=== PATIENT | female | born 1960 | race Caucasian/White ===

== ENCOUNTER 2022-01-24 16:40 | Emergency (ER) | payer OTHER, SELFPAY ==
[2022-01-24 17:04] VITALS: BP 118/79; PULSE 73; RESP 16; TEMP 36.7; O2SAT 99; BMI 31.8
--- NOTE | 2022-01-24 17:15 | ECG_ITS ---
[facility] Test Date: 2022-01-24 Pat Name: Annalise Patten Department: Room: Gender: Female Lease Broker: : 1960 Requested By: Edi Tatum Order Number: [id number] Reading MD: Claude Guo M.D. Measurements Intervals [place] Rate: 75 P: 23 AR: 153 QRS: -28 QRSD: 93 T: 39 QT: 354 QTc: 396 Interpretive Statements SINUS RHYTHM BORDERLINE LEFT AXIS DEVIATION [QRS AXIS < -20] INTERPRETATION BASED ON A DEFAULT AGE OF 40 YEARS No previous ECG available for comparison Electronically Signed On 01-25-2022 10:33:36 CDT by Claude Guo M.D. [id number] f
[2022-01-24 17:35] LABS: Basophils # 0.1 10^3/uL (0.0-0.1); Basophils % 0.3 %; Hematocrit 46.6 % (37.0-47.0); Hemoglobin 15.4 g/dL (11.5-15.3); Lymphocytes # 1.2 10^3/uL (0.8-4.8); Lymphocytes % 6.1 %; Mean Corpuscular Hemoglobin 29.8 pg (28.0-34.0); Mean Corpuscular Volume 90.3 fl (81-99); Mean Platelet Volume 9.3 fL (7.4-10.4); Monocytes # 0.6 10^3/uL (0.2-0.9); Monocytes % 2.8 %; Neutrophils # 18.22 10^3/uL (1.8-7.7); Neutrophils % 90.5 %; Nucleated Red Blood Cells % 0 %; Platelet Count 350 10^3/cmm (130-400); Red Blood Count 5.16 10^6/uL (4.1-5.3); Red Cell Distribution Width 13.8 % (12.1-15.1); White Blood Count 20.2 10^3/uL (4.0-10.0)
[2022-01-24 18:02] LABS: Troponin(5th) Baseline 13 ng/L (0-10)
[2022-01-24 18:07] LABS: Alanine Aminotransferase 15 U/L (0-33); Albumin Level 4.6 g/dL (3.5-5.2); Alkaline Phosphatase 52 IU/L (35-105); Anion Gap 17.3 (5-19); Aspartate Amino Transferase 18 U/L (0-32); Blood Urea Nitrogen 20 mg/dL (6-20); Calcium 9.9 mg/dL (8.5-10.5); Carbon Dioxide 26 mmol/L (22-29); Chloride 102 mmol/L (98-107); Creatinine Clr Calc Pharmacy 65.4819; Globulin 2.5 g/dL (1.3-4.6); Glomerular Filtration Rate 64.1 mL/min (90-130); Glucose 117 mg/dL (65-115); Osmolality Calculated 294 mOsm/kg (285-295); Potassium 5.3 mmol/L (3.5-5.1); Sodium 140 mmol/L (136-145); Total Bilirubin 0.3 mg/dL (0.15-1.2); Total Protein 7.1 g/dL (6.6-8.7)
[2022-01-24 18:11] VITALS: BP 113/69; PULSE 79; RESP 16; O2SAT 97
[2022-01-24 18:36] VITALS: BP 116/75; PULSE 71; RESP 18; O2SAT 99
--- NOTE | 2022-01-24 18:56 | CTR_ITS ---
PROCEDURE INFORMATION: Exam: CT Cervical Spine Without Contrast Exam date and time: 01/24/2022 7:13 PM Age: 61 years old Clinical indication: Injury or trauma; Fall; Blunt trauma; Patient HX: C/O neck pain after syncopal episode; Additional info: Syncope fall neck pain TECHNIQUE: Imaging protocol: Computed tomography of the cervical spine without contrast. Radiation optimization: All CT scans at this facility use at least one of these dose optimization techniques: automated exposure control; mA and/or kV adjustment per patient size (includes targeted exams where dose is matched to clinical indication); or iterative reconstruction. COMPARISON: CT head wo con* [id number] 01/24/2022 7:10 PM RADIATION DOSE METRICS: Total DLP (mGy-cm): 196.07 FINDINGS: Bones/joints: No acute fracture. Normal alignment. Discs/Spinal canal/Neural foramina: There are degenerative changes throughout the visualized spine including marginal osteophyte formations, endplate degenerative changes, and facet arthropathy. Multilevel disc space narrowing. There are multilevel broad-based disc osteophyte complexes which indent the anterior thecal sac. Lungs: Lung apices are normal. Vasculature: Peripherally calcified structure in the left carotid space measures 2.7 x 3.0 x 2.5 cm in the transverse/craniocaudad/AP dimensions. This cannot be differentiated from the adjacent carotid vasculature. Soft tissues: Unremarkable. CT/CT cervical spin wo con* [id number] IMPRESSION: 1. Peripherally calcified structure in the left carotid space measures 2.7 x 3.0 x 2.5 cm in the transverse/craniocaudad/AP dimensions. This cannot be differentiated from the adjacent carotid vasculature and a carotid aneurysm is in the differential. CT angiogram of the neck is recommended for further evaluation. 2. There are degenerative changes as described above. No evidence for acute fracture.
--- NOTE | 2022-01-24 18:56 | CTR_ITS ---
PROCEDURE INFORMATION: Exam: CT Head Without Contrast Exam date and time: 01/24/2022 7:10 PM Age: 61 years old Clinical indication: Syncope and collapse; Patient HX: Syncope episode after using bathroom TECHNIQUE: Imaging protocol: Computed tomography of the head without contrast. Radiation optimization: All CT scans at this facility use at least one of these dose optimization techniques: automated exposure control; mA and/or kV adjustment per patient size (includes targeted exams where dose is matched to clinical indication); or iterative reconstruction. COMPARISON: No relevant prior studies available. RADIATION DOSE METRICS: Total DLP (mGy-cm): 1128.48 FINDINGS: Brain: Normal. No hemorrhage. Unremarkable white matter. No mass effect. Cerebral ventricles: No ventriculomegaly. Paranasal sinuses: Visualized sinuses are unremarkable. No fluid levels. Mastoid air cells: Visualized mastoid air cells are well aerated. Bones/joints: Unremarkable. No acute fracture. Soft tissues: Unremarkable. Other findings: Partially visualized peripherally calcified structure anterior to the left C1 anterior arch measuring 2.3 cm in the transverse dimension. CT/CT head wo con* [id number] IMPRESSION: No acute intracranial findings. There is a partially visualized peripherally calcified structure anterior to the C1 arch measuring 2.3 cm.
--- NOTE | 2022-01-24 18:57 | XRR_ITS ---
PROCEDURE INFORMATION: Exam: XR Chest Exam date and time: 01/24/2022 7:30 PM Age: 61 years old Clinical indication: Patient HX: Syncope n/v/d TECHNIQUE: Imaging protocol: Radiologic exam of the chest. Views: 1 view. COMPARISON: CT abdomen pelvis wo con [id number] 01/24/2022 7:18 PM FINDINGS: Lungs: Unremarkable. No consolidation. Pleural spaces: Unremarkable. No pleural effusion. No pneumothorax. Heart/Mediastinum: Unremarkable. No cardiomegaly. Bones/joints: Rightward thoracic curvature. No visible fracture. XR/XR chest 1V portable [id number] IMPRESSION: No acute finding.
--- NOTE | 2022-01-24 18:58 | CTR_ITS ---
PROCEDURE INFORMATION: Exam: CT Abdomen And Pelvis Without Contrast Exam date and time: 01/24/2022 7:18 PM Age: 61 years old Clinical indication: Nausea and vomiting; Patient HX: C/O n/v/d; Additional info: Vomiting, syncope, leukocytosis TECHNIQUE: Imaging protocol: Computed tomography of the abdomen and pelvis without contrast. Radiation optimization: All CT scans at this facility use at least one of these dose optimization techniques: automated exposure control; mA and/or kV adjustment per patient size (includes targeted exams where dose is matched to clinical indication); or iterative reconstruction. COMPARISON: No relevant prior studies available. RADIATION DOSE METRICS: Total DLP (mGy-cm): 668.33 FINDINGS: Liver: Normal. No mass. Gallbladder and bile ducts: The fluid distended gallbladder. No visible wall thickening. The bile ducts are normal. Pancreas: Normal. No ductal dilation. Spleen: Normal. No splenomegaly. Adrenal glands: Normal. No mass. Kidneys and ureters: Left renal cyst, Hounsfield units less than 20. No follow-up imaging recommended. The kidneys are otherwise unremarkable. No calculus or hydronephrosis. Stomach and bowel: Diverticulosis of the distal colon. No diverticulitis. The remainder of the colon is decompressed. Mild wall thickening within multiple loops of small bowel in the left abdomen with mild haziness in the adjacent mesentery. Suspected mild wall thickening in the terminal ileum. The stomach is unremarkable. No wall thickening. Appendix: The appendix is not visualized. No secondary signs of appendicitis. Intraperitoneal space: Mild ascites in the right upper quadrant and pelvis. No free peritoneal air. Vasculature: Arterial calcifications. No aneurysm. Lymph nodes: Unremarkable. No enlarged lymph nodes. Urinary bladder: Unremarkable as visualized. Reproductive: Enlarged uterus with multiple calcified and noncalcified fibroids. The ovaries are unremarkable. Bones/joints: Mild leftward lumbar curvature. Degenerative changes of the spine. No acute fracture. Soft tissues: Unremarkable. CT/CT abdomen pelvis wo con [id number] IMPRESSION: 1. Wall thickening within multiple loops of small bowel in the left abdomen and in the terminal ileum, with adjacent mesenteric edema. This most likely represents infectious versus inflammatory enteritis. No obstruction. 2. Diverticulosis of the distal colon. 3. Ascites. 4. Uterine fibroids. COMMENTS: Consistent with the [employer]'s Incidental Findings Committee white paper (J Am Mikal Radiol 2018): Any incidental renal lesion less than 1 cm or classified as too small to characterize, or any incidental cystic renal lesion characterized as simple-appearing, is likely benign. No follow-up imaging is recommended for these lesions per consensus recommendations based on imaging criteria.
--- NOTE | 2022-01-24 19:34 | ED_ITS ---
HPI - Recheck/Abnormal Lab/Rx General: Chief Complaint: Recheck/Abnormal Lab/Rx Stated Complaint: abnormal labs/tests Time Seen by Provider: 01/24/22 18:36 Source: patient History of Present Illness: 61-year-old female with h history of hypertension. She presents with 3-4 episodes of vomiting with diarrhea this afternoon. After her last episode, following getting up off the toilet, she believes she passed out. She woke up in the hallway. She does not believe that she was down long. She has had episodes of chills today while she was sick. No other sick family members. No fever. No significant belly pain. No cough or respiratory symptoms. Initial visit (ago): hour(s) Associated symptoms: fever, chills, chest pain, shortness of breath, rash, nausea, abdominal pain and other Review of Systems Const: Reports: chills; Denies: fever(s) or body aches ENMT: Denies: throat pain Card: Denies: chest pain or palpitations Resp: Denies: dyspnea, productive cough or non-productive cough GI: Reports: nausea, vomiting and diarrhea; Denies: abdominal pain or hematochezia : Denies: flank pain or difficulty voiding Neuro: Denies: headache(s), weakness in extremities, sensory changes, lack of coordination, difficulty walking, dizziness, confusion, behavioral changes or Slurred speech present [facility] ED PFSH: Medical History (Updated 01/24/22 @ 22:58 by Prashant Mandel DO) HTN (hypertension) Social History (Updated 01/24/22 @ 15:13 by Marcela Castillo CMA) Smoking and tobacco status: current every day smoker (1/2 PPD) cigarettes Packs smoked per day: 1 Physical Exam Const: GENERAL APPEARANCE: cooperative; not ill appearing HENMT: COMMON NORMALS: normocephalic, atraumatic and Normal external nose present HEAD & SCALP: normocephalic and atraumatic FACE & SINUS: normal facial exam and face symmetric NOSE: Normal external nose present MOUTH: tongue normal Eye: COMMON NORMALS: Equal, round and reactive pupils present and EOMs intact bilaterally PUPIL: Yes Equal, round and reactive pupils present Neck/C-Spine: COMMON NORMALS: full ROM Chest: CHEST: Yes Symmetrical chest wall rise Resp: COMMON NORMALS: normal respiratory effort, No use of accessory muscles and clear to auscultation bilaterally AUSCULTATION: clear to auscultation bilaterally Cardio: COMMON NORMALS: regular rate, regular rhythm and Peripheral pulses 2+ throughout RATE: regular rate RHYTHM: regular rhythm PERIPHERAL PULSES: Peripheral pulses 2+ throughout GI: COMMON NORMALS: Normal to inspection, nondistended, normoactive bowel sounds present, Soft to palpation and non-tender PALPATION: Yes Soft to palpation Extremity: COMMON NORMALS: normal to inspection and capillary refill normal Neuro: PEREZ COMA SCALE: document GCS findings [place] coma scale eye opening: Spontaneous [place] coma scale verbal response: Orientated [place] coma scale motor response: Obey commands [place] coma scale total score: 15 COORDINATION/BALANCE: jgozos-hf-ycer test normal and muph-eq-racc test normal SPEECH: speech normal SENSORY EXAM: Yes extremities (intact) MOTOR EXAM: Pronator motor function not present COORDINATION: mgvtdf-[id number]-rmmj test normal and lgdy-yx-ndrh test normal Psych: COMMON NORMALS: speech normal SPEECH: Yes normal speech Course Consultations: Consultation #1: Bambi, vascular surgery, [facility] Vital Signs: Vital signs: Vital Signs Temperature 98.3 F 01/24/22 23:26 Pulse Rate 71 01/24/22 23:26 Respiratory Rate 18 01/24/22 23:26 Blood Pressure 119/74 01/24/22 23:26 Pulse Oximetry 99 01/24/22 23:26 Oxygen Delivery Me thod 01/24/22 19:45 MDM - Recheck/Abnormal Lab/Rx Medical Decision Making 61-year-old female in with a syncopal episode today, after multiple episodes of vomiting and diarrhea. Her white blood cell count is 20. Her potassium is mildly elevated at 5.3. She appears prerenal azotemic. She has received 2 L of fluid here. Her EKG shows a sinus rhythm with normal axis and intervals, and no acute significant ST changes. Her temperature is 98.1. Her blood pressure is 114/68 she is feeling improved after fluid. She had a head CT which was negative. Cervical spine CT was negative for fracture, she hurt her neck during the fall. It was positive for a calcified mass in her internal carotid space on the left. CT of the belly shows a gastroenteritis essentially. 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 This is likely unrelated to the reason she is here, as there is no evidence of rupture or dissection, but is critically large. I spoke with vascular surgery at [facility] in [place], who suggests that given the high level of aneurysm, she sees neurosurgery next week. [facility] is going to set her up for an appointment to see the on-call neurosurgeon in clinic next week. Contact information was provided for follow-up. She will be allowed home. Lab Data : 01/24/22 17:25 01/24/22 17:25 Radiology Impressions Cervical Spine CT 01/24/22 18:56 IMPRESSION: 1. Peripherally calcified structure in the left carotid space measures 2.7 x 3.0 x 2.5 cm in the transverse/craniocaudad/AP dimensions. This cannot be differentiated from the adjacent carotid vasculature and a carotid aneurysm is in the differential. CT angiogram of the neck is recommended for further evaluation. 2. There are degenerative changes as described above. No evidence for acute fracture. ADDENDUM: 01/24/222004 CRITICAL RESULT: The study was personally discussed on the telephone with PRASHANT Crystal on 01/24/2022 8:03 PM CDT. The results were understood and acknowledged. Head CT 01/24/22 18:56 IMPRESSION: No acute intracranial findings. There is a partially visualized peripherally calcified structure anterior to the C1 arch measuring 2.3 cm. Chest X-Ray 01/24/22 18:57 IMPRESSION: No acute finding. Abdomen/Pelvis CT 01/24/22 18:58 IMPRESSION: 1. Wall thickening within multiple loops of small bowel in the left abdomen and in the terminal ileum, with adjacent mesenteric edema. This most likely represents infectious versus inflammatory enteritis. No obstruction. 2. Diverticulosis of the distal colon. 3. Ascites. 4. Uterine fibroids. COMMENTS: Consistent with the [employer] [employer]'s Incidental Findings Committee white paper (J Am Mikal Radiol 2018): Any incidental renal lesion less than 1 cm or classified as too small to characterize, or any incidental cystic renal lesion characterized as simple-appearing, is likely benign. No follow-up imaging is recommended for these lesions per consensus recommendations based on imaging criteria. Head/Neck CTA 01/24/22 20:03 IMPRESSION: No large vessel stenosis or occlusion. IMPRESSION: 1. 3.2 cm saccular aneurysm arising from the left internal carotid artery. 2. Calcified plaque in the bilateral proximal internal carotid arteries without significant stenosis. COMMENTS: Consistent with the [employer]'s Incidental Findings Committee white paper (J Am Mikal Radiol 2015): In patients aged 35 years and older with an incidental thyroid nodule equal to or greater than 1.[address], MRI or extrathyroidal US, further evaluation with dedicated thyroid US is recommended for patients with normal life expectancy and without comorbidities. For smaller nodules without suspicious features, no further evaluation or follow up is recommended. REFERENCES: NASCET CRITERIA. The degree of internal carotid artery stenosis is based on NASCET criteria. Normal is no stenosis. Mild is less than 50% stenosis. Moderate is 50-69% stenosis. Severe is 70% to 99% stenosis. Total occlusion is no detectable patent lumen. ADDENDUM: 01/24/22 [id number] THIS REPORT CONTAINS FINDINGS THAT MAY BE CRITICAL TO PATIENT CARE. The findings were verbally communicated via telephone conference with Dr. Byrne at 9:51 PM CDT on 01/24/2022. The findings were acknowledged and understood. Laboratory Results WBC 20.2 10^3/uL (4.0-10.0) H 01/24/22 17:25 RBC 5.16 10^6/uL (4.1-5.3) 01/24/22 17:25 Hgb 15.4 g/dL (11.5-15.3) H 01/24/22 17:25 Hct 46.6 % (37.0-47.0) 01/24/22 17:25 MCV 90.3 fl (81-99) 01/24/22 17:25 MCH 29.8 pg (28.0-34.0) 01/24/22 17:25 MCHC 33.0 g/dL (30.0-36.0) 01/24/22 17:25 RDW 13.8 % (12.1-15.1) 01/24/22 17:25 Plt Count 350 10^3/cmm (130-400) 01/24/22 17:25 MPV 9.3 fL (7.4-10.4) 01/24/22 17:25 Neut % (Auto) 90.5 % 01/24/22 17:25 Lymph % (Auto) 6.1 % 01/24/22 17:25 [place] % (Auto) 2.8 % 01/24/22 17:25 Eos % (Auto) 0.0 % 01/24/22 17:25 Baso % (Auto) 0.3 % 01/24/22 17:25 Neut # (Auto) 18.22 10^3/uL (1.8-7.7) H 01/24/22 17:25 Lymph # (Auto) 1.2 10^3/uL (0.8-4.8) 01/24/22 17:25 [place] # (Auto) 0.6 10^3/uL (0.2-0.9) 01/24/22 17:25 Eos # (Auto) 0.0 10^3/uL (0.0-0.8) 01/24/22 17:25 Baso # (Auto) 0.1 10^3/uL (0.0-0.1) 01/24/22 17:25 Nucleated RBC % (auto) 0 % 01/24/22 17:25 Nucleated RBCs # 0.0 /100WBC 01/24/22 17:25 Sodium 140 mmol/L (136-145) 01/24/22 17:25 Potassium 5.3 mmol/L (3.5-5.1) H 01/24/22 17:25 Chloride 102 mmol/L (98-107) 01/24/22 17:25 Carbon Dioxide 26 mmol/L (22-29) 01/24/22 17:25 Anion Gap 17.3 (5-19) 01/24/22 17:25 BUN 20 mg/dL (6-20) 01/24/22 17:25 Creatinine 0.9 mg/dL (0.5-0.9) 01/24/22 17:25 GFR Calculation 64.1 mL/min (90-130) L 01/24/22 17:25 Glucose 117 mg/dL (65-115) H 01/24/22 17:25 Calculated Osmolality 294 mOsm/kg (285-295) 01/24/22 17:25 Calcium 9.9 mg/dL (8.5-10.5) 01/24/22 17:25 Total Bilirubin 0.3 mg/dL (0.15-1.2) 01/24/22 17:25 AST 18 U/L (0-32) 01/24/22 17:25 ALT 15 U/L (0-33) 01/24/22 17:25 Alkaline Phosphatase 52 IU/L (35-105) 01/24/22 17:25 Troponin T Baseline 13 ng/L (0-10) H 01/24/22 17:25 Troponin T 120 Minute 13.59 ng/L (0-10) H 01/24/22 19:28 Delta Troponin T 0.59 ABS# (0-10) 01/24/22 19:28 Total Protein 7.1 g/dL (6.6-8.7) 01/24/22 17:25 Albumin 4.6 g/dL (3.5-5.2) 01/24/22 17:25 Globulin 2.5 g/dL (1.3-4.6) 01/24/22 17:25 Lipase 39 U/L (13-60) 01/24/22 17:25 Discharge Plan Discharge Patient Disposition: Home Clinical Impression: Syncope, Gastroenteritis, Aneurysm, carotid artery, internal Condition: Stable Prescriptions: New metronidazole 500 mg tablet 500 mg PO TID Qty: 21 0RF Continued ondansetron 4 mg tablet,disintegrating 4 mg PO Q6H PRN (Reason: nausea and vomiting) Qty: 12 0RF Rx Instructions: 340b please No Action amlodipine 10 mg tablet 10 mg PO DAILY lisinopril 10 mg tablet 10 mg PO DAILY Discharge Orders: Discharge ED (Routine); Ordered 01/24/22 Ordered By: Prashant Mandel Referrals: Anna Renteria PA-C [Primary Care Provider] - 1-3 days Patient Instructions: Syncope (ED), Gastroenteritis (ED) Activity Restrictions/Additional Instructions: Antibiotics as directed. Drink plenty of fluids over the next 48 hours. Use nausea medication as needed. Return for vomiting liquids or medications despite treatment, worsening pain despite treatment, dizziness, repeated episodes of syncope or passing out, other concerning symptoms. You have been referred as an outpatient to the [facility] neurosurgery clinic. You should get a call Wednesday or Wednesday with a follow-up appointment regarding your carotid aneurysm. If you do not hear from them, call [phone], and let them know you were referred there to see Dr. Tomlinson for an internal carotid artery aneurysm. Coding Level of Care Code ED Press Hand for Naomig Fwd Exam Comprehensive
--- NOTE | 2022-01-24 19:42 | ECG_ITS ---
[facility] Test Date: 2022-01-24 Pat Name: Annalise Patten Department: Room: Gender: Female Commercial Cleaner: : 1960 Requested By: Edi Tatum Order Number: [id number] Reading MD: Claude Guo M.D. Measurements Intervals [place] Rate: 66 P: 26 DC: 153 QRS: -14 QRSD: 95 T: 39 QT: 380 QTc: 399 Interpretive Statements SINUS RHYTHM NONSPECIFIC ST ELEVATION [0.05+ mV ST ELEVATION] Compared to ECG 01/24/2022 17:15:31 ST (T wave) deviation now present Electronically Signed On 01-25-2022 10:38:08 CDT by Claude Guo M.D. [id number]
[2022-01-24] MEDS: sodium chloride 0.9% 1,000 ML 999 ML IV ×2 (19:43→21:57)
[2022-01-24 19:45] VITALS: BP 114/68; PULSE 65; RESP 18; O2SAT 98
[2022-01-24 20:02] LABS: Troponin 5 2HR 13.59 ng/L (0-10)
[2022-01-24 20:03] LABS: Troponin 5 2HR Delta 0.59 ABS# (0-10)
--- NOTE | 2022-01-24 20:03 | CTR_ITS ---
PROCEDURE INFORMATION: Exam: CTA Head With Contrast, Arteriography Exam date and time: 01/24/2022 8:53 PM Age: 61 years old Clinical indication: Syncope and collapse; Additional info: Syncope, calcified mass carotid space TECHNIQUE: Imaging protocol: Computed tomographic angiography of the head with contrast. Exam focused on the arteries. 3D rendering (Not supervised by radiologist): MIP and/or 3D reconstructed images were created by the technologist. Radiation optimization: All CT scans at this facility use at least one of these dose optimization techniques: automated exposure control; mA and/or kV adjustment per patient size (includes targeted exams where dose is matched to clinical indication); or iterative reconstruction. Contrast material: OMNIPAQUE 350; Contrast volume: 95 ml; Contrast route: INTRAVENOUS (IV); COMPARISON: CT head wo con* [id number] 01/24/2022 7:10 PM RADIATION DOSE METRICS: Total DLP (mGy-cm): 397.32 FINDINGS: ANTERIOR CIRCULATION: Right internal carotid artery: Unremarkable. Intracranial segment is patent with no significant stenosis. No aneurysm. Right middle cerebral artery: Unremarkable. No occlusion or significant stenosis. No aneurysm. Right anterior cerebral artery: Unremarkable. No occlusion or significant stenosis. No aneurysm. Left internal carotid artery: Unremarkable. Intracranial segment is patent with no significant stenosis. No aneurysm. Left middle cerebral artery: Unremarkable. No occlusion or significant stenosis. No aneurysm. Left anterior cerebral artery: Unremarkable. No occlusion or significant stenosis. No aneurysm. POSTERIOR CIRCULATION: Right vertebral artery: Unremarkable. No occlusion or significant stenosis. No aneurysm. Left vertebral artery: Unremarkable. No occlusion or significant stenosis. No aneurysm. Basilar artery: Unremarkable. No occlusion or significant stenosis. No aneurysm. Right posterior cerebral artery: Unremarkable. No occlusion or significant stenosis. No aneurysm. Left posterior cerebral artery: Unremarkable. No occlusion or significant stenosis. No aneurysm. Brain: No definite mass, mass effect, or midline shift. Cerebral ventricles: No ventriculomegaly. Bones/joints: Unremarkable. No acute fracture. Soft tissues: Unremarkable. PROCEDURE INFORMATION: Exam: CTA Neck With Contrast Exam date and time: 01/24/2022 8:53 PM Age: 61 years old Clinical indication: Syncope and collapse; Additional info: Syncope, calcified mass carotid space TECHNIQUE: Imaging protocol: Computed tomographic angiography of the neck with contrast. 3D rendering (Not supervised by radiologist): MIP and/or 3D reconstructed images were created by the technologist. Radiation optimization: All CT scans at this facility use at least one of these dose optimization techniques: automated exposure control; mA and/or kV adjustment per patient size (includes targeted exams where dose is matched to clinical indication); or iterative reconstruction. Contrast material: OMNI 350; Contrast volume: 95 ml; Contrast route: INTRAVENOUS (IV); COMPARISON: CT cervical spin wo con* [id number] 01/24/2022 7:13 PM RADIATION DOSE METRICS: Total DLP (mGy-cm): 397.32 FINDINGS: Right common carotid artery: No stenosis. No dissection or occlusion. Right internal carotid artery: Calcified plaque in the proximal right internal carotid artery with 0% stenosis. Medial tortuosity. No aneurysm. Right external carotid artery: No occlusion or stenosis of the origin. Left common carotid artery: No stenosis. No dissection or occlusion. Left internal carotid artery: Calcified plaque in the proximal left internal carotid artery with 0% stenosis. 2.4 x 3.2 x 3.0 cm peripherally calcified left internal carotid artery saccular aneurysm. Left external carotid artery: No occlusion or stenosis of the origin. Right vertebral artery: No stenosis. No dissection or occlusion. Left vertebral artery: No stenosis. No dissection or occlusion. Thyroid: Subcentimeter thyroid nodules. No ultrasound follow-up is recommended. Soft tissues: Normal. No significant soft tissue swelling. Bones/joints: No acute fracture. CT/CT angio headneck* [id number] IMPRESSION: No large vessel stenosis or occlusion. IMPRESSION: 1. 3.2 cm saccular aneurysm arising from the left internal carotid artery. 2. Calcified plaque in the bilateral proximal internal carotid arteries without significant stenosis. COMMENTS: Consistent with the [employer]'s Incidental Findings Committee white paper (J Am Mikal [employer]iol 2015): In patients aged 35 years and older with an incidental thyroid nodule equal to or greater than 1.[address], MRI or extrathyroidal US, further evaluation with dedicated thyroid US is recommended for patients with normal life expectancy and without comorbidities. For smaller nodules without suspicious features, no further evaluation or follow up is recommended. REFERENCES: NASCET CRITERIA. The degree of internal carotid artery stenosis is based on NASCET criteria. Normal is no stenosis. Mild is less than 50% stenosis. Moderate is 50-69% stenosis. Severe is 70% to 99% stenosis. Total occlusion is no detectable patent lumen.
[2022-01-24 20:59] LABS: Lipase 39 U/L (13-60)
[2022-01-24] MEDS: iohexol 350 mg/mL 100 mL Btl IV (21:07)
[2022-01-24 23:26] VITALS: BP 119/74; PULSE 71; RESP 18; TEMP 36.8; O2SAT 99
== END 2022-01-24 23:28 | disposition home or self-care (01) ==
PROVIDERS: Family Medicine; Emergency Provider Emergency Medicine; PCP Physician Assistant
DX: K52.9 Noninfective gastroenteritis and colitis, unspecified (principal); R55 Syncope and collapse; I67.1 Cerebral aneurysm, nonruptured; I10 Essential (primary) hypertension; F17.210 Nicotine dependence, cigarettes, uncomplicated
CPT/HCPCS: 36415; 70450; 70496; 70498; 71045; 72125; 74176; 80053; 83690; 84484; 85025; 93005; 96360; 99285; J7030; Q9967